=== PATIENT | female | born 1990 | race Two or more races ===

== ENCOUNTER 2023-04-04 21:14 | Emergency (ER) | payer SELFPAY ==
[~2023-04-04] VITALS: Ht 162.6 cm; Wt 76.2 kg
[2023-04-04 22:17] VITALS: TEMP 98.2
[2023-04-04] MEDS ORDERED: PROCHLORPERAZINE EDISYLATE 10 MG/2 ML VIAL IVP ONE (22:30)
[2023-04-04] MEDS ORDERED: diphenhydrAMINE HCL 50 MG/ML VIAL IV ONE (22:30)
[2023-04-04] MEDS ORDERED: PROCHLORPERAZINE EDISYLATE 10 MG/2 ML VIAL ONE (22:32)
[2023-04-04] MEDS ORDERED: diphenhydrAMINE HCL 50 MG/ML VIAL ONE (22:32)
[2023-04-04 23:08] LABS: BASOPHILS % (AUTO) 0.5 % (0.0-2.0); EOSINOPHILS # (AUTO) 0.4 K/uL (0.0-0.7); EOSINOPHILS % (AUTO) 5.3 % (0.0-6.0); HEMATOCRIT 38 % (33-45); HEMOGLOBIN 12.6 g/dL (11.5-14.8); LYMPHOCYTES # (AUTO) 2.1 K/uL (0.8-4.8); LYMPHOCYTES % (AUTO) 26.2 % (20.0-44.0); MEAN CORPUSCULAR HEMOGLOBIN 29 PG (26.0-33.0); MEAN CORPUSCULAR HGB CONC 33 g/dl (31.0-36.0); MEAN CORPUSCULAR VOLUME 88 fL (82-100); MONOCYTES # (AUTO) 0.8 K/uL (0.1-1.30); NEUTROPHILS # (AUTO) 4.6 K/uL (1.8-8.9); PLATELET COUNT (AUTO) 295 K/uL (150-450); RED BLOOD CELL COUNT(AUTO) 4.36 MIL/uL (4.0-5.2); RED CELL DISTRIBUTION WIDTH 12.7 % (11.5-15.0)
[2023-04-04 23:11] LABS: PREGNANCY TEST URINE QUAL NEGATIVE (NEGATIVE)
[2023-04-04 23:20] LABS: CALCIUM, SERUM 9.2 mg/dL (8.5-10.1); CREATININE 0.8 mg/dL (0.6-1.3); POTASSIUM 3.7 mmol/L (3.5-5.1)
[2023-04-04] MEDS ORDERED: IV NS 0.9% 1,000 ML IV ONE (23:30)
[2023-04-05 00:26] VITALS: BP 114/71; O2SAT 100
[2023-04-05] MEDS ORDERED: NAPR-1164 PO (00:32)
== END 2023-04-05 00:50 | disposition home or self-care (01) ==
LOC: ER 21:23
DX: G40.909 Epilepsy, unspecified, not intractable, without status epilepticus (principal); I10 Essential (primary) hypertension; Z86.73 Personal history of transient ischemic attack (TIA), and cerebral infarction without residual deficits
CPT/HCPCS: 99285; 96374; 70450; 96361; 96375; 85025; 80048; 84703; 36415; J0780; J1200; J7030